=== PATIENT | male | born 1945 | race Asian ===

== ENCOUNTER → 2016-11-02 | Outpatient (CLI) | payer MEDICARE, OTHER | LOC: OD 15:32 | PROVIDERS: ATTEND Physician Assistant | DX: R10.32 Left lower quadrant pain (principal) | CPT/HCPCS: 74000 ==

== ENCOUNTER → 2016-12-07 | Outpatient (CLI) | payer MEDICARE, OTHER | LOC: OD 15:10 | PROVIDERS: ATTEND Physician Assistant | DX: M25.551 Pain in right hip (principal) ==

== ENCOUNTER → 2016-12-21 | Outpatient (CLI) | payer MEDICARE, OTHER ==
[2016-12-21 15:09] LABS: APPEARANCE,URINE CLEAR; BILIRUBIN,URINE NEGATIVE (NEGATIVE); GLUCOSE, URINE NEGATIVE (NEGATIVE); KETONES,URINE NEGATIVE (NEGATIVE); LEUKOCYTE ESTERASE,URINE NEGATIVE (NEGATIVE); NITRITE,URINE NEGATIVE (NEGATIVE); PROTEIN,URINE NEGATIVE (NEGATIVE); URINE SPECIFIC GRAVITY 1.008; UROBILINOGEN,URINE NEGATIVE mg/dL (<2.0)
[2016-12-21 15:27] LABS: HEMATOCRIT 42.1 % (37.9-51.0); HEMOGLOBIN 14.2 g/dL (13.5-17.0); HGB HCT DIFFERENCE 0.5; MEAN CORPUSCULAR HEMOGLOBIN 29.2 pg (27.0-33.4); MEAN CORPUSCULAR HGB CONC 33.8 g/dL (32.0-36.0); MEAN CORPUSCULAR VOLUME 86 fl (80-97); RED BLOOD COUNT 4.88 10^6/uL (4.35-5.55); WHITE BLOOD COUNT 5.1 10^3/uL (4.0-10.5)
[2016-12-21 15:44] LABS: ANION GAP 12 (5-19); BLOOD UREA NITROGEN 20 mg/dL (7-20); CALCIUM 9.4 mg/dL (8.4-10.2); CARBON DIOXIDE 27 mmol/L (22-30); CHLORIDE 103 mmol/L (98-107); CREATININE RESULT 1.11 mg/dL (0.52-1.25); GLUCOSE 88 mg/dL (75-110); POTASSIUM 4.2 mmol/L (3.6-5.0); SODIUM 141.7 mmol/L (137-145)
== END ==
LOC: OD 14:10
PROVIDERS: ATTEND Internal Medicine Nephrology
DX: I12.9 Hypertensive chronic kidney disease with stage 1 through stage 4 chronic kidney disease, or unspecified chronic kidney disease (principal); N18.2 Chronic kidney disease, stage 2 (mild); R80.9 Proteinuria, unspecified
CPT/HCPCS: 36415; 80048; 81001; 82570; 84156; 85027

== ENCOUNTER → 2016-12-26 | Outpatient (CLI) | payer MEDICARE, OTHER | LOC: OD 15:57 | PROVIDERS: ATTEND Family Medicine | DX: M51.37 Other intervertebral disc degeneration, lumbosacral region (principal); M25.561 Pain in right knee | CPT/HCPCS: 72110 ==

== ENCOUNTER → 2017-03-09 | Outpatient (CLI) | payer MEDICARE, OTHER ==
--- NOTE | 2017-03-09 11:45 | RADIOLOGY REPORT (SQ) ---
EXAM DESCRIPTION: U/S RETROPERITON (RENAL/AORTA) COMPLETED DATE/TIME: 03/09/2017 9:41 am REASON FOR STUDY: COMPLEX CYST, RENAL N28.1 CYST OF KIDNEY, ACQUIRED COMPARISON: CT abdomen pelvis 09/05/2016 TECHNIQUE: Dynamic and static grayscale images acquired of the kidneys and bladder and recorded on P ACS. Additional selected color Doppler and spectral images recorded. LIMITATIONS: None. FINDINGS: RIGHT KIDNEY: Right kidney is 11.1 cm in size. There is mild diffuse cortical thinning an d increased echogenicity from medical renal disease. No hydronephrosis or calculi. In the right mid-pole kidney, a 2.5 x 2 cm cyst is present, and a 1.8 x 16 cm cyst is present. LEFT KIDNEY: Left kidney is 11.3 cm in size. There is mild diffuse cortical thinning and increased echogenicity from medical renal disease. No hydronephrosis or stones. Stable 4 cm cyst in the left mid to upper pole kidney. Stable 3.5 cm, 2.2 cm, 2.1 cm and 1.7 cm lowe r pole cortical cysts. Tiny calcifications identified by CT 09/05/2016 in the 4 cm cyst left mid gladis e kidney and lower pole renal cyst are not apparent by ultrasound BLADDER: No masses. Bilateral ureteral jets are present. OTHER FINDINGS: No other significant finding. IMPRESSION: Stable right and left renal cortical cysts compared to CT 09/05/2016. TECHNICAL DOCUMENTATION: JOB ID: [id number] [employer]- All Rights Reserved
== END ==
LOC: RAD 08:37
PROVIDERS: ATTEND Urology
DX: N28.1 Cyst of kidney, acquired (principal)
CPT/HCPCS: 76770

== ENCOUNTER → 2017-07-12 | Outpatient (CLI) | payer MEDICARE, OTHER ==
[2017-07-12 16:32] LABS: HEMATOCRIT 42.7 % (37.9-51.0); HEMOGLOBIN 14.8 g/dL (13.5-17.0); HGB HCT DIFFERENCE 1.7; MEAN CORPUSCULAR HEMOGLOBIN 30.3 pg (27.0-33.4); MEAN CORPUSCULAR HGB CONC 34.6 g/dL (32.0-36.0); MEAN CORPUSCULAR VOLUME 88 fl (80-97); RED BLOOD COUNT 4.86 10^6/uL (4.35-5.55); RED CELL DISTRIBUTION WIDTH 12.8 % (11.5-14.0); WHITE BLOOD COUNT 5.6 10^3/uL (4.0-10.5)
[2017-07-12 16:36] LABS: APPEARANCE,URINE SLIGHTLY-CLOUDY; BILIRUBIN,URINE NEGATIVE (NEGATIVE); GLUCOSE, URINE NEGATIVE (NEGATIVE); KETONES,URINE NEGATIVE (NEGATIVE); LEUKOCYTE ESTERASE,URINE NEGATIVE (NEGATIVE); NITRITE,URINE NEGATIVE (NEGATIVE); PROTEIN,URINE NEGATIVE (NEGATIVE); URINE SPECIFIC GRAVITY 1.023; UROBILINOGEN,URINE NEGATIVE mg/dL (<2.0)
[2017-07-12 16:56] LABS: ANION GAP 13 (5-19); BLOOD UREA NITROGEN 29 mg/dL (7-20); CALCIUM 9.3 mg/dL (8.4-10.2); CARBON DIOXIDE 25 mmol/L (22-30); CHLORIDE 101 mmol/L (98-107); GLUCOSE 104 mg/dL (75-110); POTASSIUM 4.4 mmol/L (3.6-5.0); SODIUM 139.3 mmol/L (137-145)
== END ==
LOC: OD 14:59
PROVIDERS: ATTEND Internal Medicine Nephrology
DX: I12.9 Hypertensive chronic kidney disease with stage 1 through stage 4 chronic kidney disease, or unspecified chronic kidney disease (principal); N18.2 Chronic kidney disease, stage 2 (mild); R80.9 Proteinuria, unspecified
CPT/HCPCS: 36415; 80048; 81001; 85027

== ENCOUNTER → 2017-07-27 | Outpatient (CLI) | payer MEDICARE, OTHER ==
[2017-07-27 14:17] LABS: HEMATOCRIT 41.9 % (37.9-51.0); HEMOGLOBIN 14.4 g/dL (13.5-17.0); HGB HCT DIFFERENCE 1.3; MEAN CORPUSCULAR HEMOGLOBIN 30.3 pg (27.0-33.4); MEAN CORPUSCULAR HGB CONC 34.4 g/dL (32.0-36.0); MEAN CORPUSCULAR VOLUME 88 fl (80-97); RED BLOOD COUNT 4.75 10^6/uL (4.35-5.55); RED CELL DISTRIBUTION WIDTH 12.4 % (11.5-14.0); WHITE BLOOD COUNT 4.8 10^3/uL (4.0-10.5)
[2017-07-27 14:33] LABS: BLOOD UREA NITROGEN 26 mg/dL (7-20); CALCIUM 9.5 mg/dL (8.4-10.2); CARBON DIOXIDE 29 mmol/L (22-30); GLUCOSE 95 mg/dL (75-110); SODIUM 140.9 mmol/L (137-145)
[2017-07-27 14:38] LABS: ANION GAP 12 (5-19); CHLORIDE 100 mmol/L (98-107)
== END ==
LOC: OD 13:35
PROVIDERS: ATTEND Internal Medicine Nephrology
DX: N18.2 Chronic kidney disease, stage 2 (mild) (principal); R50.9 Fever, unspecified; I10 Essential (primary) hypertension
CPT/HCPCS: 36415; 80048; 85027

== ENCOUNTER → 2017-09-24 | Outpatient (CLI) | payer MEDICARE, OTHER ==
[2017-09-24 15:48] LABS: HEMATOCRIT 44.5 % (37.9-51.0); HGB HCT DIFFERENCE 0.5; MEAN CORPUSCULAR HGB CONC 33.7 g/dL (32.0-36.0); MEAN CORPUSCULAR VOLUME 89 fl (80-97); RED CELL DISTRIBUTION WIDTH 13.1 % (11.5-14.0); WHITE BLOOD COUNT 5.9 10^3/uL (4.0-10.5)
[2017-09-24 15:58] LABS: APPEARANCE,URINE CLEAR; BILIRUBIN,URINE NEGATIVE (NEGATIVE); GLUCOSE, URINE NEGATIVE (NEGATIVE); KETONES,URINE NEGATIVE (NEGATIVE); LEUKOCYTE ESTERASE,URINE NEGATIVE (NEGATIVE); NITRITE,URINE NEGATIVE (NEGATIVE); PROTEIN,URINE NEGATIVE (NEGATIVE); URINE SPECIFIC GRAVITY 1.008; UROBILINOGEN,URINE NEGATIVE mg/dL (<2.0)
[2017-09-25 14:44] LABS: ANION GAP 11 (5-19); BLOOD UREA NITROGEN 29 mg/dL (7-20); CALCIUM 9.4 mg/dL (8.4-10.2); CARBON DIOXIDE 27 mmol/L (22-30); CHLORIDE 101 mmol/L (98-107); CREATININE RESULT 1.24 mg/dL (0.52-1.25); GLUCOSE 98 mg/dL (75-110); POTASSIUM 4.2 mmol/L (3.6-5.0)
== END ==
LOC: OD 15:00
PROVIDERS: ATTEND Internal Medicine Nephrology
DX: N18.3 Chronic kidney disease, stage 3 (moderate) (principal); I12.9 Hypertensive chronic kidney disease with stage 1 through stage 4 chronic kidney disease, or unspecified chronic kidney disease
CPT/HCPCS: 36415; 80048; 81001; 85027

== ENCOUNTER 2018-03-29 10:14 | Emergency (ER) | payer MEDICARE, OTHER ==
--- NOTE | 2018-03-29 11:25 | ER Document Report ---
ED Respiratory Problem - General Chief Complaint: Shortness Of Breath Stated Complaint: DIFFICULTY BREATHING Time Seen by Provider: 03/29/18 11:19 Mode of Arrival: Ambulatory Information source: Patient TRAVEL OUTSIDE OF THE [place] IN LAST 30 DAYS: No - HPI Patient complains to provider of: Short of breath, Other - NAUSEA THIS A.M.; FEET COLD @ NIGHT x 3 WEEKS Onset: Yesterday - LAST PM Duration: Better Quality of pain: No pain Severity: Mild Context: Hx COPD. denies: Malignancy, Recent cardiac event, Recent immobilization, Recent surgery Short of Breath: Mild Cough: Nonproductive Sputum amount: None Associated symptoms: Other - NAUSEA THIS A.M. WHILE @ UROLOGY OFFICE; NO EMESIS Similar symptoms previously: Yes Recently seen / treated by doctor: Yes - UROLOGIST, THIS A.M. - Related Data Allergies/Adverse Reactions: No Known Allergies Allergy (Verified 03/29/18 10:15) Past Medical History - General Information source: Patient - Social History Smoking Status: Former Smoker Cigarette use (# per day): No Chew tobacco use (# tins/day): No Frequency of alcohol use: None Drug Abuse: None Lives with: Family Family History: Reviewed & Not Pertinent - Past Medical History Cardiac Medical History: Reports: Hx Coronary Artery Disease, Hx Hypercholesterolemia, Hx Hypertension Denies: Hx Heart Attack Pulmonary Medical History: Reports: Hx Bronchitis - HX OF, Hx Pneumonia - HX OF Denies: Hx Asthma, Hx COPD Neurological Medical History: Denies: Hx Cerebrovascular Accident, Hx Seizures Endocrine Medical History: Reports: None. Denies: Hx Diabetes Mellitus Type 1, Hx Diabetes Mellitus Type 2 Renal/ Medical History: Reports: Hx Renal Insufficiency GI Medical History: Reports: None Musculoskeltal Medical History: Reports Hx Arthritis - HANDS, KNEES Psychiatric Medical History: Reports: None Past Surgical History: Reports: Hx Orthopedic Surgery - R shoulder, Hx Tonsillectomy - Immunizations Hx Diphtheria, Pertussis, Tetanus Vaccination: Yes Review of Systems - Review of Systems Constitutional: No symptoms reported EENT: No symptoms reported Cardiovascular: See HPI Respiratory: See HPI Gastrointestinal: See HPI Genitourinary: No symptoms reported Musculoskeletal: No symptoms reported Skin: No symptoms reported Neurological/Psychological: No symptoms reported Physical Exam - Vital signs Vitals: Temp Pulse Resp BP Pulse Ox 98.2 F 86 18 133/75 H 95 03/29/18 10:20 03/29/18 10:20 03/29/18 10:20 03/29/18 10:20 03/29/18 10:20 Interpretation: Normal. No: Tachycardic, Hypoxic, Tachypneic, Febrile - General General appearance: Appears well, Alert In distress: None - HEENT Head: Normocephalic Eyes: Normal Conjunctiva: Normal Ears: Normal Nasal: Normal Mouth/Lips: Normal Mucous membranes: Normal - Respiratory Respiratory status: No respiratory distress Breath sounds: Normal - Cardiovascular Rhythm: Regular Heart sounds: Normal auscultation Murmur: No - Abdominal Inspection: Normal Distension: No distension - Extremities General upper extremity: Normal inspection General lower extremity: Normal inspection, Other - NORMAL DP PULSES BILAT.. No : Tender, Edema - Neurological Neuro grossly intact: Yes Cognition: Normal Orientation: AAOx4 - Psychological Associated symptoms: Normal affect, Normal mood - Skin Skin Temperature: Warm Skin Moisture: Dry Skin Color: Normal Skin Turgor: Elastic Course - Re-evaluation Re-evalutation: 03/29/18 15:07 Reevaluation: Patient has no complaints at present, says he has been asymptomatic during his entire stay in the emergency department. Results of workup discussed with patient. Suggested he follow up routinely with his primary care. Also, consider referral to neurology for symptoms in his lower extremities. - Vital Signs Vital signs: Temp Pulse Resp BP Pulse Ox 98.2 F 86 23 H 126/79 H 95 03/29/18 10:20 03/29/18 10:20 03/29/18 11:08 03/29/18 14:00 03/29/18 14:00 - Laboratory Result Diagrams: 03/29/18 11:17 03/29/18 11:25 Laboratory results interpreted by me: 03/29/18 11:25 BUN 28 H Creatinine 1.43 H Est GFR ( Amer) 59 L Est GFR (Non-Af Amer) 49 L Direct Bilirubin 0.5 H - EKG Interpretation by Ct EKG shows normal: Sinus rhythm. abnormal: QRS Complexes - SMALL INF. Q WAVES [place]/QRS: RBBB - OLD When compared to previous EKG there are: No significant change Discharge - Discharge Clinical Impression: Paresthesia of bilateral legs COPD (chronic obstructive pulmonary disease) Qualifiers: COPD type: unspecified COPD Qualified Code(s): J44.9 - Chronic obstructive pulmonary disease, unspecified Dyspnea Qualifiers: Dyspnea type: unspecified Qualified Code(s): R06.00 - Dyspnea, unspecified Condition: Stable Disposition: HOME, SELF-CARE Instructions: Chronic Obstructive Lung Disease ([facility]), Numbness or Paresthesia ( [facility]) Additional Instructions: CONTINUE YOUR USUAL MEDS. FOLLOW UP WITH DR. BATRES, YOU MAY NEED REFERRAL TO NEUROLOGY FOR YOU LEG SYMPTOMS. RETURN TO E.R. IF PROBLEMS. Referrals: Nelson DENNEY MD [ACTIVE STAFF] - Follow up as needed JUANITA BATRES DO [Primary Care Provider] - Follow up as needed
[2018-03-29 11:51] LABS: ABSOLUTE EOSINOPHILS # (AUTO) 0.3 10^3/uL (0.0-0.6); ABSOLUTE LYMPHOCYTES (AUTO) 0.9 10^3/uL (0.5-4.7); ABSOLUTE MONOCYTES (AUTO) 0.6 10^3/uL (0.1-1.4); ABSOLUTE NEUT (AUTO) 4.6 10^3/uL (1.7-8.2); BASOPHILS % (AUTO) 0.3 % (0-2); EOSINOPHILS % (AUTO) 4.3 % (0-6); HEMATOCRIT 42.2 % (37.9-51.0); HEMOGLOBIN 14.3 g/dL (13.5-17.0); LYMPHOCYTES % (AUTO) 13.6 % (13-45); MEAN CORPUSCULAR HEMOGLOBIN 30.3 pg (27.0-33.4); MEAN CORPUSCULAR HGB CONC 33.9 g/dL (32.0-36.0); MEAN CORPUSCULAR VOLUME 89 fl (80-97); MONOCYTES % (AUTO) 9.7 % (3-13); PLATELET COUNT 174 10^3/uL (150-450); RED BLOOD COUNT 4.71 10^6/uL (4.35-5.55); SEGMENTED NEUTROPHILS % (AUTO) 72.1 % (42-78); TOTAL CELLS COUNTED % (AUTO) 100 %; WHITE BLOOD COUNT 6.4 10^3/uL (4.0-10.5)
--- NOTE | 2018-03-29 11:56 | RADIOLOGY REPORT (SQ) ---
EXAM DESCRIPTION: CHEST 2 VIEWS COMPLETED DATE/TIME: 03/29/2018 11:34 am REASON FOR STUDY: DYSPNEA, COPD COMPARISON: 09/07/2016. EXAM PARAMETERS: NUMBER OF VIEWS: two views TECHNIQUE: Digital Frontal and Lateral radiographic views of the chest acquired. RADIATION DOSE: NA LIMITATIONS: none FINDINGS: LUNGS AND PLEURA: Chronic elevation of the right hemidiaphragm with atelectasis in the rig ht lung base. Left lung clear. No pleural effusion. No pneumothorax. MEDIASTINUM AND HILAR STRUCTURES: No masses or contour abnormalities. HEART AND VASCULAR STRUCTURES: Heart normal size. No evidence for failure. BONES: No acute findings. HARDWARE: None in the chest. OTHER: No other significant finding. IMPRESSION: CHRONIC ELEVATION OF THE RIGHT HEMIDIAPHRAGM WITH ATELECTASIS IN THE RIGHT LUNG BASE. N O OTHER SIGNIFICANT FINDINGS. TECHNICAL DOCUMENTATION: JOB ID: [id number] [employer]- All Rights Reserved Reading location - IP/workstation name: [email or web address]
[2018-03-29 12:03] LABS: ALANINE AMINOTRANSFERASE 37 U/L (21-72); ALBUMIN 4.3 g/dL (3.5-5.0); ALKALINE PHOSPHATASE 81 U/L (38-126); ANION GAP 12 (5-19); ASPARTATE AMINO TRANSFERASE 31 U/L (17-59); BILIRUBIN,DIRECT 0.5 mg/dL (0.0-0.4); BILIRUBIN,TOTAL 0.8 mg/dL (0.2-1.3); BLOOD UREA NITROGEN 28 mg/dL (7-20); CALCIUM 9.8 mg/dL (8.4-10.2); CARBON DIOXIDE 27 mmol/L (22-30); CHLORIDE 104 mmol/L (98-107); CREATINE KINASE 72 U/L (55-170); GLUCOSE 102 mg/dL (75-110); LIPASE 111.4 U/L (23-300); POTASSIUM 4.7 mmol/L (3.6-5.0); SODIUM 143.2 mmol/L (137-145); TOTAL PROTEIN 7.2 g/dL (6.3-8.2)
[2018-03-29 12:15] LABS: CREATINE KINASE MB 1.08 ng/mL (<4.55); TROPONIN I < 0.012 ng/mL
--- NOTE | 2018-03-29 13:52 | EKG REPORT ---
SEVERITY:- ABNORMAL ECG - SINUS RHYTHM RIGHT BUNDLE BRANCH BLOCK PROBABLE INFERIOR INFARCT, AGE INDETERMINATE : Confirmed by: Carlitos Brown MD 29-Mar-2018 13:51:47
[2018-03-29 15:24] VITALS: BP 122/86
== END 2018-03-29 15:32 | disposition home or self-care (01) ==
LOC: ER 10:14
DX: J44.9 Chronic obstructive pulmonary disease, unspecified (principal); R06.00 Dyspnea, unspecified; R20.0 Anesthesia of skin; R11.0 Nausea; Z87.891 Personal history of nicotine dependence; I25.10 Atherosclerotic heart disease of native coronary artery without angina pectoris; I10 Essential (primary) hypertension
CPT/HCPCS: 36415; 71046; 80053; 82550; 82553; 83690; 83880; 84484; 85025; 93005; 93010; 99285

== ENCOUNTER → 2018-04-22 | Outpatient (CLI) | payer MEDICARE, OTHER ==
[2018-04-22 15:33] LABS: APPEARANCE,URINE CLEAR; BILIRUBIN,URINE NEGATIVE (NEGATIVE); COLOR,URINE STRAW; GLUCOSE, URINE NEGATIVE (NEGATIVE); KETONES,URINE NEGATIVE (NEGATIVE); LEUKOCYTE ESTERASE,URINE NEGATIVE (NEGATIVE); NITRITE,URINE NEGATIVE (NEGATIVE); PROTEIN,URINE NEGATIVE (NEGATIVE); URINE SPECIFIC GRAVITY 1.006; UROBILINOGEN,URINE NEGATIVE mg/dL (<2.0)
[2018-04-22 15:40] LABS: HEMATOCRIT 41.6 % (37.9-51.0); HEMOGLOBIN 14.2 g/dL (13.5-17.0); MEAN CORPUSCULAR HEMOGLOBIN 30.6 pg (27.0-33.4); MEAN CORPUSCULAR HGB CONC 34.2 g/dL (32.0-36.0); MEAN CORPUSCULAR VOLUME 90 fl (80-97); PLATELET COUNT 174 10^3/uL (150-450); RED BLOOD COUNT 4.65 10^6/uL (4.35-5.55); RED CELL DISTRIBUTION WIDTH 12.3 % (11.5-14.0); WHITE BLOOD COUNT 5.2 10^3/uL (4.0-10.5)
[2018-04-22 15:56] LABS: ANION GAP 15 (5-19); BLOOD UREA NITROGEN 22 mg/dL (7-20); CALCIUM 9.2 mg/dL (8.4-10.2); CARBON DIOXIDE 25 mmol/L (22-30); CHLORIDE 103 mmol/L (98-107); GLUCOSE 96 mg/dL (75-110); POTASSIUM 4.2 mmol/L (3.6-5.0); SODIUM 142.7 mmol/L (137-145)
== END ==
LOC: OD 14:26
PROVIDERS: ATTEND Internal Medicine Nephrology
DX: I12.9 Hypertensive chronic kidney disease with stage 1 through stage 4 chronic kidney disease, or unspecified chronic kidney disease (principal); N18.2 Chronic kidney disease, stage 2 (mild); R80.9 Proteinuria, unspecified
CPT/HCPCS: 36415; 80048; 81001; 83735; 85027

== ENCOUNTER → 2018-06-10 | Outpatient (CLI) | payer MEDICARE, OTHER ==
--- NOTE | 2018-06-10 15:31 | RADIOLOGY REPORT (SQ) ---
EXAM DESCRIPTION: SHOULDER RIGHT 2 OR MORE VIEWS COMPLETED DATE/TIME: 06/10/2018 3:13 pm REASON FOR STUDY: PAIN IN RIGHT SHOULDER M25.511 PAIN IN RIGHT SHOULDER COMPARISON: None. NUMBER OF VIEWS: Three views. TECHNIQUE: Internal rotation, external rotation, and Y view images acquired of the right shoulder. LIMITATIONS: None. FINDINGS: MINERALIZATION: Normal. BONES: No acute fracture or dislocation. No worrisome bone lesions. JOINTS: No dislocation. VISUALIZED LUNGS AND RIBS: No pneumothorax. No rib fracture. SOFT TISSUES: No radiopaque foreign body. OTHER: No other significant finding. IMPRESSION: NEGATIVE STUDY OF THE RIGHT SHOULDER. NO RADIOGRAPHIC EVIDENCE OF ACUTE INJURY. TECHNICAL DOCUMENTATION: JOB ID: [id number] [employer]- All Rights Reserved Reading location - IP/workstation name: [email or web address]
== END ==
LOC: OD 14:52
PROVIDERS: ATTEND Family Medicine
DX: M25.511 Pain in right shoulder (principal)

== ENCOUNTER → 2018-09-11 | Outpatient (CLI) | payer MEDICARE, OTHER ==
--- NOTE | 2018-09-11 11:45 | RADIOLOGY REPORT (SQ) ---
EXAM DESCRIPTION: FOOT RIGHT COMPLETE COMPLETED DATE/TIME: 09/11/2018 11:33 am REASON FOR STUDY: RT FOOT PAIN M79.671 PAIN IN RIGHT FOOT crush injury to the toes 1-1/2 weeks ago with continued pain COMPARISON: None. NUMBER OF VIEWS: Three views. TECHNIQUE: AP, lateral and oblique radiographic images acquired of the right foot. LIMITATIONS: None. FINDINGS: MINERALIZATION: Normal. BONES: Nondisplaced acute transverse fractures along the distal michaelle of the 3rd and 5th phalanges. Remainder of the bones of the right foot are otherwise unremarkable aside from a small plantar calcan eal spur. JOINTS: No effusions. SOFT TISSUES: No soft tissue swelling. No foreign body. OTHER: No other significant finding. IMPRESSION: Nondisplaced acute transverse fractures along the distal michaelle of the 3rd and 5th distal phalanges, right toes TECHNICAL DOCUMENTATION: JOB ID: [id number] [employer]- All Rights Reserved Reading location - IP/workstation name: [email or web address]
== END ==
LOC: OD 11:14
PROVIDERS: ATTEND Nurse Practitioner Family
DX: M79.671 Pain in right foot (principal)

== ENCOUNTER → 2018-10-21 | Outpatient (CLI) | payer MEDICARE, OTHER ==
[2018-10-21 16:02] LABS: HEMATOCRIT 43.7 % (37.9-51.0); MEAN CORPUSCULAR HGB CONC 34.3 g/dL (32.0-36.0); MEAN CORPUSCULAR VOLUME 87 fl (80-97); PLATELET COUNT 168 10^3/uL (150-450); RED BLOOD COUNT 5.01 10^6/uL (4.35-5.55); RED CELL DISTRIBUTION WIDTH 12.3 % (11.5-14.0); WHITE BLOOD COUNT 4.9 10^3/uL (4.0-10.5)
[2018-10-21 16:09] LABS: APPEARANCE,URINE CLEAR; BILIRUBIN,URINE NEGATIVE (NEGATIVE); COLOR,URINE YELLOW; GLUCOSE, URINE NEGATIVE (NEGATIVE); KETONES,URINE NEGATIVE (NEGATIVE); LEUKOCYTE ESTERASE,URINE NEGATIVE (NEGATIVE); NITRITE,URINE NEGATIVE (NEGATIVE); PROTEIN,URINE NEGATIVE (NEGATIVE); URINE SPECIFIC GRAVITY 1.011; UROBILINOGEN,URINE NEGATIVE mg/dL (<2.0)
[2018-10-21 16:24] LABS: ANION GAP 9 (5-19); BLOOD UREA NITROGEN 22 mg/dL (7-20); CALCIUM 9.6 mg/dL (8.4-10.2); CARBON DIOXIDE 27 mmol/L (22-30); CHLORIDE 103 mmol/L (98-107); GLUCOSE 106 mg/dL (75-110); SODIUM 138.7 mmol/L (137-145)
== END ==
LOC: OD 15:13
PROVIDERS: ATTEND Internal Medicine Nephrology
DX: I12.9 Hypertensive chronic kidney disease with stage 1 through stage 4 chronic kidney disease, or unspecified chronic kidney disease (principal); N18.2 Chronic kidney disease, stage 2 (mild); R80.9 Proteinuria, unspecified
CPT/HCPCS: 36415; 80048; 81001; 83735; 85027

== ENCOUNTER 2018-11-07 11:35 | Observation (INO) | payer MEDICARE ==
[2018-11-07] MEDS ORDERED: ASPIRIN 81 MG TABLET, CHEWABLE PO ONE (12:07)
[2018-11-07] MEDS ORDERED: LIDOCAINE 2% VISCOUS SOLN 20 ML UDCUP PO ONE (12:46)
[2018-11-07] MEDS ORDERED: METOCLOPRAMIDE HCL ORAL SOLN 10 MG/10 ML UDCUP PO ONE (12:46)
[2018-11-07] MEDS ORDERED: MAG HYDROX/AL HYDROX/SIMETH SUSP 30 ML UDCUP PO ONE (12:46)
--- NOTE | 2018-11-07 12:49 | ER Document Report ---
ED Cardiac - General Chief Complaint: Chest Pain Stated Complaint: CHEST PAIN Time Seen by Provider: 11/07/18 12:42 Primary Care Provider: JUANITA BATRES DO [Primary Care Provider] - Follow up as needed TRAVEL OUTSIDE OF THE [place] IN LAST 30 DAYS: No - HPI Notes: Patient is a 73-year-old male that presents to the emergency department for chief complaint of chest pain. Patient reports intermittent substernal chest pain for the last few weeks. He saw Dr. Brown for the symptoms about a week and a half ago. He states he is scheduled for a stress test on 06/22/19. He does report a history of NM in the past. He describes his pain as a burning sensation. It occurs at rest and with exertion. He denies aggravating or relieving factors. He denies radiation of his pain. He denies associated nausea, vomiting, but does endorse some mild shortness of breath when the pain is occurring. Past Medical History: Hypertension, hyperlipidemia, NM Past Surgical History: Left shoulder surgery, left inguinal tumor resection Social History: Denies alcohol and drug use. Quit smoking in 1976 Family History: Reviewed and noncontributory for presenting illness Allergies: Reviewed, see documented allergy list. REVIEW OF SYSTEMS: CONSTITUTIONAL : No fever No chills No diaphoresis No recent illness EENT: No vision changes No congestion No sore throat CARDIOVASCULAR: chest pain No palpitations RESPIRATORY: shortness of breath No cough No difficulty breathing GASTROINTESTINAL: No abdominal pain No nausea No vomiting No diarrhea GENITOURINARY: No dysuria No hematuria No difficulty urinating MUSCULOSKELETAL: No back pain No leg pain No arm pain SKIN: No rashes No lesions LYMPHATIC: No swollen, enlarged glands. NEUROLOGICAL: No lightheadedness No headache No weakness No paresthesias PSYCHIATRIC: No anxiety No depression PHYSICAL EXAMINATION: Vital signs reviewed, nursing noted reviewed. GENERAL: Well-appearing, well-nourished and in no acute distress. HEAD: Atraumatic, normocephalic. EYES: Eyes appear normal, extraocular movements intact, sclera anicteric, conjunctiva are normal. ENT: nares patent, oropharynx clear without exudates. Moist mucous membranes. NECK: Normal range of motion, supple without lymphadenopathy LUNGS: Breath sounds clear to auscultation bilaterally and equal. No wheezes rales or rhonchi. HEART: Regular rate and rhythm without murmurs, +2/4 bilateral radial pulses ABDOMEN: Soft, nontender, normoactive bowel sounds. No rebound, guarding, or rigidity. No masses appreciated. EXTREMITIES: Nontender, good range of motion, no pitting or edema. NEUROLOGICAL: No focal neurological deficits. Moves all extremities spontaneously Motor and sensory grossly intact on exam. PSYCH: Normal mood, normal affect. SKIN: Warm, Dry, normal turgor, no rashes or lesions noted on exposed skin - Related Data Allergies/Adverse Reactions: No Known Allergies Allergy (Verified 03/29/18 10:15) Past Medical History - Social History Smoking Status: Former Smoker Family History: Reviewed & Not Pertinent Patient has suicidal ideation: No Patient has homicidal ideation: No - Past Medical History Cardiac Medical History: Reports: Hx Coronary Artery Disease, Hx Hyp ercholesterolemia, Hx Hypertension Denies: Hx Heart Attack Pulmonary Medical History: Reports: Hx Bronchitis - HX OF, Hx Pneumonia - HX OF Denies: Hx Asthma, Hx COPD Neurological Medical History: Denies: Hx Cerebrovascular Accident, Hx Seizures Endocrine Medical History: Denies: Hx Diabetes Mellitus Type 1, Hx Diabetes Me llitus Type 2 Renal/ Medical History: Reports: Hx Renal Insufficiency. Denies: Hx Peritoneal Dialysis Musculoskeletal Medical History: Reports Hx Arthritis - HANDS, KNEES Past Surgical History: Reports: Hx Orthopedic Surgery - R shoulder, Hx Tonsillectomy - Immunizations Hx Diphtheria, Pertussis, Tetanus Vaccination: Yes Physical Exam - Vital signs Vitals: Temp Pulse Resp BP Pulse Ox 97.8 F 85 15 125/68 93 11/07/18 11:47 11/07/18 11:47 11/07/18 11:47 11/07/18 11:47 11/07/18 11:47 Course - Re-evaluation Re-evalutation: 11/07/18 13:36 Vitals reviewed. Nursing notes reviewed. Patient's EKG is unchanged from prior. His troponin is negative. The remainder of his workup is unremarkable. Patient does have multiple risk factors for CAD and will be admitted to the hospital for further telemetry monitoring and cardiac evaluation. Case discussed with Dr. Sandee Cummings 11/07/18 11/07/18 11/07/18 12:18 12:18 12:18 WBC 5.8 RBC 5.06 Hgb 15.2 Hct 44.5 MCV 88 MCH 30.1 MCHC 34.2 RDW 12.5 Plt Count 167 Seg Neutrophils % 63.5 Lymphocytes % 16.5 Monocytes % 12.2 Eosinophils % 7.3 H Basophils % 0.5 Absolute Neutrophils 3.7 Absolute Lymphocytes 0.9 Absolute Monocytes 0.7 Absolute Eosinophils 0.4 Absolute Basophils 0.0 Sodium 140.7 Potassium 4.1 Chloride 103 Carbon Dioxide 27 Anion Gap 11 BUN 27 H Creatinine 1.24 Est GFR ( Amer) > 60 Est GFR (Non-Af Amer) 57 L Glucose 99 Calcium 9.7 Total Bilirubin 0.5 Direct Bilirubin 0.3 Neonat Total Bilirubin Not Reportable Neonat Direct Bilirubin Not Reportable Neonat Indirect Bili Not Reportable AST 23 ALT 36 Alkaline Phosphatase 92 Creatine Kinase 49 L CK-MB (CK-2) 0.69 Troponin I < 0.012 Total Protein 6.9 Albumin 4.4 Chest X-Ray 11/07/18 12:07 IMPRESSION: NO ACUTE RADIOGRAPHIC FINDING IN THE CHEST. who accepts admission. - Vital Signs Vital signs: Temp Pulse Resp BP Pulse Ox 97.8 F 85 14 111/81 94 11/07/18 11:47 11/07/18 11:47 11/07/18 13:01 11/07/18 13:01 11/07/18 13:01 - Laboratory Result Diagrams: 11/07/18 12:18 11/07/18 12:18 Laboratory results interpreted by me: 11/07/18 11/07/18 12:18 12:18 Eosinophils % 7.3 H BUN 27 H Est GFR (Non-Af Amer) 57 L Creatine Kinase 49 L - EKG Interpretation by Me Additional EKG results interpreted by me: 11/07/18 12:48 Interpreted by myself 1139: Normal sinus rhythm, rate 76, normal axis, right bundle branch block, no STEMI Discharge - Discharge Clinical Impression: Chest pain Qualifiers: Chest pain type: unspecified Qualified Code(s): R07.9 - Chest pain, unspecified Condition: Stable Disposition: ADMITTED OBSERVATION Admitting Provider: Hospitalist Unit Admitted: Telemetry Referrals: JUANITA BATRES DO [Primary Care Provider] - Follow up as needed
[2018-11-07 12:52] LABS: ABSOLUTE EOSINOPHILS # (AUTO) 0.4 10^3/uL (0.0-0.6); ABSOLUTE LYMPHOCYTES (AUTO) 0.9 10^3/uL (0.5-4.7); ABSOLUTE MONOCYTES (AUTO) 0.7 10^3/uL (0.1-1.4); ABSOLUTE NEUT (AUTO) 3.7 10^3/uL (1.7-8.2); BASOPHILS % (AUTO) 0.5 % (0-2); EOSINOPHILS % (AUTO) 7.3 % (0-6); HEMATOCRIT 44.5 % (37.9-51.0); HEMOGLOBIN 15.2 g/dL (13.5-17.0); LYMPHOCYTES % (AUTO) 16.5 % (13-45); MEAN CORPUSCULAR HEMOGLOBIN 30.1 pg (27.0-33.4); MEAN CORPUSCULAR HGB CONC 34.2 g/dL (32.0-36.0); MEAN CORPUSCULAR VOLUME 88 fl (80-97); MONOCYTES % (AUTO) 12.2 % (3-13); PLATELET COUNT 167 10^3/uL (150-450); RED BLOOD COUNT 5.06 10^6/uL (4.35-5.55); RED CELL DISTRIBUTION WIDTH 12.5 % (11.5-14.0); SEGMENTED NEUTROPHILS % (AUTO) 63.5 % (42-78); TOTAL CELLS COUNTED % (AUTO) 100 %; WHITE BLOOD COUNT 5.8 10^3/uL (4.0-10.5)
--- NOTE | 2018-11-07 12:59 | RADIOLOGY REPORT (SQ) ---
EXAM DESCRIPTION: CHEST SINGLE VIEW COMPLETED DATE/TIME: 11/07/2018 12:45 pm REASON FOR STUDY: cp COMPARISON: 03/29/2018 EXAM PARAMETERS: NUMBER OF VIEWS: One view. TECHNIQUE: Single frontal radiographic view of the chest acquired. RADIATION DOSE: NA LIMITATIONS: None. FINDINGS: LUNGS AND PLEURA: Chronically elevated right hemidiaphragm. No pulmonary infiltrate, effu maxim, or mass. MEDIASTINUM AND HILAR STRUCTURES: No masses. Contour normal. HEART AND VASCULAR STRUCTURES: Heart normal in size. Normal vasculature. BONES: No acute findings. HARDWARE: None in the chest. OTHER: No other significant finding. IMPRESSION: NO ACUTE RADIOGRAPHIC FINDING IN THE CHEST. TECHNICAL DOCUMENTATION: JOB ID: [id number] [employer]- All Rights Reserved Reading location - IP/workstation name: [email or web address]
[2018-11-07 13:03] LABS: ALANINE AMINOTRANSFERASE 36 U/L (21-72); ALBUMIN 4.4 g/dL (3.5-5.0); ALKALINE PHOSPHATASE 92 U/L (38-126); ANION GAP 11 (5-19); ASPARTATE AMINO TRANSFERASE 23 U/L (17-59); BILIRUBIN,DIRECT 0.3 mg/dL (0.0-0.4); BILIRUBIN,TOTAL 0.5 mg/dL (0.2-1.3); BLOOD UREA NITROGEN 27 mg/dL (7-20); CALCIUM 9.7 mg/dL (8.4-10.2); CARBON DIOXIDE 27 mmol/L (22-30); CHLORIDE 103 mmol/L (98-107); CREATINE KINASE 49 U/L (55-170); GLUCOSE 99 mg/dL (75-110); POTASSIUM 4.1 mmol/L (3.6-5.0); SODIUM 140.7 mmol/L (137-145); TOTAL PROTEIN 6.9 g/dL (6.3-8.2)
[2018-11-07 13:15] LABS: CREATINE KINASE MB 0.69 ng/mL (<4.55)
[2018-11-07 13:17] LABS: TROPONIN I < 0.012 ng/mL
[2018-11-07] MEDS ORDERED: ACETAMINOPHEN 325 MG TABLET PO PRN (14:39)
[2018-11-07] MEDS ORDERED: ONDANSETRON HCL INJ/PF 4 MG/2 ML SDV IV PRN (14:39)
[2018-11-07] MEDS ORDERED: ACETAMINOPHEN PO PRN (14:46)
[2018-11-07] MEDS ORDERED: HYDROCODONE PO PRN (14:46)
[2018-11-07] MEDS ORDERED: [UNRECOGNIZED DRUG - OTHER] PO PRN (14:46)
[2018-11-07] MEDS ORDERED: (PENDING PHARMACY ID) (Nitroglycerin [Nitrostat] 0.3 MG) SL PRN (14:46)
--- NOTE | 2018-11-07 15:14 | PDOC H&P ---
History of Present Illness Admission Date/PCP: 11/07/18 14:19 JUANITA BATRES DO Patient complains of: Chest pain ER physician chest pain History of Present Illness: JAE CHONG is a 73 year old male with history of coronary artery disease status post [place] 4 years ago, hypertension, hyperlipidemia, gastroparesis reflux disease came to the emergency room with complaints of on and off discomfort feeling over the chest middle of the chest rather each time lasting for couple of hours. He tried to take nitroglycerin at home did not ease of the pain. Pain is not associated with activity. No associated symptoms like nausea, vomiting, sweating, shortness of breath was reported by the patient. The workup done by the ER physician troponin was negative EKG with no acute changes medical consult was called for admission for possible stress test. Went to talk to the patient in the emergency room is comfortably in the bed alert and awake communicating well oriented. He is chest pain-free now. Patient actually went to see Dr. Brown is staff today with complaints of chest pain he was advised to come to the ER for further evaluation. Patient is also given the history and he was scheduled for outpatient stress test on November [address] Clark's office in the meantime he came to the emergency room with chest pains. Past Medical History Cardiac Medical History: Reports: Coronary Artery Disease, Hyperlipidema, Hyper tension Denies: Myocardial Infarction Pulmonary Medical History: Reports: Bronchitis - HX OF, Pneumonia - HX OF Denies: Asthma, Chronic Obstructive Pulmonary Disease (COPD) Neurological Medical History: Denies: Seizures Endocrine Medical History: Denies: Diabetes Mellitus Type 1, Diabetes Mellitus Type 2 Musculoskeltal Medical History: Reports: Arthritis - HANDS, KNEES Hematology: Denies: Anemia Past Surgical History Past Surgical History: Reports: Orthopedic Surgery - R shoulder, Tonsillectomy Social History Smoking Status: Former Smoker Frequency of Alcohol Use: None Hx Recreational Drug Use: No Hx Prescription Drug Abuse: No - Advance Directive Resuscitation Status: Full Code Family History Family History: Reviewed & Not Pertinent Parental Family History Reviewed: Yes Children Family History Reviewed: Yes Sibling(s) Family History Reviewed.: Yes Medication/Allergy Home Medications: Aspirin [Aspirin 81 mg Chewable Tablet] 81 mg PO DAILY 09/12/13 Esomeprazole Magnesium [Nexium] 20 mg PO QAM 09/12/13 Fluticasone Propionate [Flonase Nasal Slater 50 Mcg/Slater 16 gm] 1 spray NASL Q12 09/12/13 Hydrocodone/Acetaminophen [Hydrocodon-Acetaminoph 7.5-750] 1 each PO HSP PRN 09/12/13 Simvastatin [Zocor 20 mg Tablet] 20 mg PO QHS 09/12/13 Telmisartan/Hydrochlorothiazid [Micardis HCT 40-12.5 mg Tablet] 1 each PO DAILY 09/12/13 Cinnamon Bark [Cinnamon Bark 500 mg Capsule] 500 mg PO DAILY 12/10/13 Multivitamin [Tab-A-Magdaleno] 1 each PO DAILY 12/10/13 Nitroglycerin [Nitrostat] 0.3 mg SL ONCEP PRN #1 tab.subl 01/30/15 Amlodipine Besylate [Norvasc 5 mg Tablet] 5 mg PO DAILY 08/25/15 Diphenhydramine HCl [Benadryl] 50 mg PO Q6 5 Days capsule 08/25/15 Promethazine HCl [Phenergan 25 mg Tablet] 1 - 2 tab PO Q6H PRN #15 tablet 08/25/15 Tamsulosin HCl [Flomax 0.4 mg Cap.sr] 0.4 mg PO DAILY 08/25/15 Allergies/Adverse Reactions: No Known Allergies Allergy (Verified 03/29/18 10:15) Review of Systems Constitutional: ABSENT: fever(s) Eyes: ABSENT: visual disturbances Ears: ABSENT: hearing changes Nose, Mouth, and Throat: ABSENT: sore throat Cardiovascular: PRESENT: chest pain Gastrointestinal: ABSENT: dysphagia, heartburn, nausea, vomiting Neurological: ABSENT: abnormal gait, abnormal speech, confusion, dizziness, focal weakness, syncope Psychiatric: ABSENT: anxiety, depression, homidical ideation, suicidal ideation Physical Exam Vital Signs: Temp Pulse Resp BP Pulse Ox 97.8 F 85 14 111/81 94 11/07/18 11:47 11/07/18 11:47 11/07/18 13:01 11/07/18 13:01 11/07/18 13:01 Intake & Output 11/06/18 11/07/18 11/08/18 06:59 06:59 06:59 Weight 99 kg General appearance: PRESENT: no acute distress Head exam: PRESENT: atraumatic Eye exam: PRESENT: PERRLA Mouth exam: PRESENT: moist Neck exam: ABSENT: carotid bruit, JVD, lymphadenopathy, thyromegaly Respiratory exam: PRESENT: clear to auscultation josé luis. ABSENT: rales, rhonchi, wheezes Cardiovascular exam: PRESENT: RRR. ABSENT: diastolic murmur, rubs, systolic murmur GI/Abdominal exam: PRESENT: normal bowel sounds, soft. ABSENT: distended, guarding, mass, organolmegaly, rebound, tenderness Extremities exam: PRESENT: full ROM. ABSENT: calf tenderness, clubbing, pedal edema Neurological exam: PRESENT: alert, awake, oriented to person, oriented to place, oriented to time, oriented to situation, CN II-XII grossly intact. ABSENT: motor sensory deficit Psychiatric exam: PRESENT: appropriate affect, normal mood. ABSENT: homicidal ideation, suicidal ideation Results Laboratory Results: 11/07/18 12:18 11/07/18 12:18 11/07/18 11/07/18 12:18 12:18 WBC 5.8 RBC 5.06 Hgb 15.2 Hct 44.5 MCV 88 MCH 30.1 MCHC 34.2 RDW 12.5 Plt Count 167 Seg Neutrophils % 63.5 Lymphocytes % 16.5 Monocytes % 12.2 Eosinophils % 7.3 H Basophils % 0.5 Absolute Neutrophils 3.7 Absolute Lymphocytes 0.9 Absolute Monocytes 0.7 Absolute Eosinophils 0.4 Absolute Basophils 0.0 Sodium 140.7 Potassium 4.1 Chloride 103 Carbon Dioxide 27 Anion Gap 11 BUN 27 H Creatinine 1.24 Est GFR ( Amer) > 60 Est GFR (Non-Af Amer) 57 L Glucose 99 Calcium 9.7 Total Bilirubin 0.5 AST 23 ALT 36 Alkaline Phosphatase 92 Total Protein 6.9 Albumin 4.4 11/07/18 11/07/18 12:18 12:18 Creatine Kinase 49 L CK-MB (CK-2) 0.69 Troponin I < 0.012 Impressions: Chest X-Ray 11/07/18 12:07 IMPRESSION: NO ACUTE RADIOGRAPHIC FINDING IN THE CHEST. Assessment & Plan - Diagnosis (1) Chest pain Qualifiers: Chest pain type: unspecified Qualified Code(s): R07.9 - Chest pain, unspecified Plan: 11/07/2018-patient is going to be admitted to telemetry observation. Cardiology consult was requested. Serial cardiac enzymes with troponins and EKGs are requested. Started on aspirin 325 mg p.o. daily, atorvastatin 40 mg p.o. nightly. Lipid panel is requested for tomorrow. Patient was scheduled for the stress test tomorrow. Initial troponin and EKGs are normal. I discussed the case with Dr. Brown who is her supervisor matrix he is going to do the consult today. (2) Coronary artery disease Is this a current diagnosis for this admission?: Yes Plan: 11/07/2018-patient is given the history of heart attack 3 years ago. He denies any stent placements at the time. Never had any bypass surgery was done before. (3) HTN (hypertension) Is this a current diagnosis for this admission?: Yes Plan: 11/07/2018-patient is giving history of hypertension. Blood pressure today is 111/81. stable. Plan to resume his home medications. Patient is on Graham start on/hydrochlorothiazide 40/12.5 mg p.o. daily at home we are going to resume the medication here in the hospital. (4) Obesity (BMI 30-39.9) Plan: 11/07/2018-patient BMI is more than 35 diet exercise weight loss lifestyle modifications are requested. Dietary consult was requested. (5) Hyperlipemia Is this a current diagnosis for this admission?: Yes Plan: 11/07/2018-patient is given the history of high cholesterols. He is not on any cholesterol medication at home. Started on atorvastatin 40 mg p.o. nightly. (6) GERD (gastroesophageal reflux disease) Is this a current diagnosis for this admission?: Yes Plan: 11/07/2018-patient is given the history of heartburn and history of gastric further reflux disease. He is on S omeprazole at home. We are going to put him on famotidine 20 mg p.o. twice a daily while he was in the hospital. - Time Time Spent: 50 to 70 Minutes Medications reviewed and adjusted accordingly: Yes Anticipated discharge: Home
[2018-11-07] MEDS ORDERED: NITROGLYCERIN 0.4 MG/TAB 25 TAB/BOTTLE SL PRN ×2 (15:21→15:52)
[2018-11-07] MEDS ORDERED: HYDROCODONE/ACETAMINOPHEN 5-325 MG TABLET PO PRN (15:25)
[2018-11-07] MEDS: DIPHENHYDRAMINE HCL 50 MG CAPSULE PO SCH (17:54)
[2018-11-07 19:06] LABS: CREATINE KINASE MB 0.68 ng/mL (<4.55)
[2018-11-07 19:11] LABS: TROPONIN I < 0.012 ng/mL
[2018-11-07] MEDS ORDERED: MAG HYDROX/AL HYDROX/SIMETH SUSP 30 ML UDCUP PO PRN (19:24)
[2018-11-07] MEDS ORDERED: METOCLOPRAMIDE HCL ORAL SOLN 10 MG/10 ML UDCUP PO PRN (19:25)
[2018-11-07] MEDS ORDERED: LIDOCAINE 2% VISCOUS SOLN 20 ML UDCUP PO PRN (19:26)
--- NOTE | 2018-11-07 21:09 | EKG REPORT ---
SEVERITY:- ABNORMAL ECG - SINUS RHYTHM RIGHT BUNDLE BRANCH BLOCK : Confirmed by: Gail Wilcox MD 07-Nov-2018 21:08:40
[2018-11-07] MEDS ORDERED: FINASTERIDE 5 MG TABLET PO SCH (22:00)
[2018-11-07] MEDS ORDERED: (PENDING PHARMACY ID) (Terazosin Hcl [Hytrin] 2 MG) PO SCH (22:00)
[2018-11-07] MEDS ORDERED: SIMVASTATIN 10 MG TABLET PO SCH (22:00)
[2018-11-07] MEDS ORDERED: HYDROCODONE/ACETAMINOPHEN 5-325 MG TABLET PO SCH (22:00)
[2018-11-07] MEDS ORDERED: ATORVASTATIN CALCIUM 40 MG TABLET PO SCH (22:00)
[2018-11-07] MEDS ORDERED: FLUTICASONE NASAL SPRAY 50 MCG/SPRY 120 SPRAY/16 GM NASL SCH (22:00)
[2018-11-07] MEDS ORDERED: GABAPENTIN 300 MG CAPSULE PO SCH (22:00)
[2018-11-07] MEDS ORDERED: DOXAZOSIN MESYLATE 2 MG TABLET PO SCH (22:00)
[2018-11-07] MEDS: FAMOTIDINE 20 MG TABLET PO SCH (22:19)
[2018-11-07] MEDS: FLUTICASONE NASAL SPRAY 50 MCG/SPRY 120 SPRAY/16 GM NASL SCH (22:19)
[2018-11-08] MEDS: DIPHENHYDRAMINE HCL 50 MG CAPSULE PO SCH ×3 (00:51→11:08)
[2018-11-08 01:01] LABS: CREATINE KINASE MB 0.75 ng/mL (<4.55)
[2018-11-08 01:06] LABS: TROPONIN I < 0.012 ng/mL
[2018-11-08 07:10] LABS: ABSOLUTE EOSINOPHILS # (AUTO) 0.4 10^3/uL (0.0-0.6); ABSOLUTE LYMPHOCYTES (AUTO) 1.2 10^3/uL (0.5-4.7); ABSOLUTE MONOCYTES (AUTO) 0.7 10^3/uL (0.1-1.4); ABSOLUTE NEUT (AUTO) 3.3 10^3/uL (1.7-8.2); BASOPHILS % (AUTO) 0.4 % (0-2); EOSINOPHILS % (AUTO) 7.9 % (0-6); HEMATOCRIT 42.8 % (37.9-51.0); HEMOGLOBIN 14.3 g/dL (13.5-17.0); MEAN CORPUSCULAR HEMOGLOBIN 29.4 pg (27.0-33.4); MEAN CORPUSCULAR HGB CONC 33.5 g/dL (32.0-36.0); MEAN CORPUSCULAR VOLUME 88 fl (80-97); MONOCYTES % (AUTO) 11.9 % (3-13); PLATELET COUNT 146 10^3/uL (150-450); RED BLOOD COUNT 4.88 10^6/uL (4.35-5.55); RED CELL DISTRIBUTION WIDTH 12.4 % (11.5-14.0); SEGMENTED NEUTROPHILS % (AUTO) 58.8 % (42-78); TOTAL CELLS COUNTED % (AUTO) 100 %; WHITE BLOOD COUNT 5.5 10^3/uL (4.0-10.5)
[2018-11-08 07:30] LABS: ALANINE AMINOTRANSFERASE 44 U/L (21-72); ALBUMIN 3.7 g/dL (3.5-5.0); ALKALINE PHOSPHATASE 70 U/L (38-126); ASPARTATE AMINO TRANSFERASE 22 U/L (17-59); BILIRUBIN,DIRECT 0.1 mg/dL (0.0-0.4); BILIRUBIN,TOTAL 0.6 mg/dL (0.2-1.3); BLOOD UREA NITROGEN 25 mg/dL (7-20); CALCIUM 9.1 mg/dL (8.4-10.2); CHOLESTEROL 152.25 mg/dL (0-200); GLUCOSE 92 mg/dL (75-110); TRIGLYCERIDES 225 mg/dL (<150)
[2018-11-08 07:41] LABS: CREATINE KINASE MB 0.73 ng/mL (<4.55); DIRECT LDL 64 mg/dL (<100)
[2018-11-08 07:53] LABS: TROPONIN I < 0.012 ng/mL
[2018-11-08] MEDS ORDERED: (PENDING PHARMACY ID) (Cetirizine Hcl [Zyrtec] 10 MG) PO SCH (08:00)
[2018-11-08] MEDS ORDERED: CHLORTHALIDONE 25 MG TABLET PO SCH (08:00)
[2018-11-08] MEDS ORDERED: CETIRIZINE 10 MG TABLET PO SCH (08:00)
[2018-11-08 08:04] LABS: ANION GAP 5 (5-19); CARBON DIOXIDE 31 mmol/L (22-30); CHLORIDE 102 mmol/L (98-107); POTASSIUM 3.8 mmol/L (3.6-5.0)
[2018-11-08] MEDS ORDERED: ASPIRIN 81 MG TABLET, CHEWABLE PO SCH (10:00)
[2018-11-08] MEDS ORDERED: (PENDING PHARMACY ID) (Telmisartan [Micardis 80 Mg Tablet] 80 MG) PO SCH (10:00)
[2018-11-08] MEDS ORDERED: HYDROCHLOROTHIAZIDE 12.5 MG TABLET PO SCH (10:00)
[2018-11-08] MEDS ORDERED: CINNAMON BARK 500 MG PO SCH (10:00)
[2018-11-08] MEDS ORDERED: ENOXAPARIN SODIUM INJ 40 MG/0.4 ML DISP.SYRIN SUBCUT SCH (10:00)
[2018-11-08] MEDS ORDERED: LOSARTAN POTASSIUM 25 MG TABLET PO SCH (10:00)
[2018-11-08] MEDS ORDERED: (PENDING PHARMACY ID) (Telmisartan/Hydrochlorothiazid [Micardis Hct 40-12.5 Mg Tablet] 1 E PO SCH (10:00)
[2018-11-08] MEDS ORDERED: MULTIVITAMIN TABLET PO SCH (10:00)
[2018-11-08] MEDS ORDERED: TAMSULOSIN HCL 0.4 MG CAP.SR.24H PO SCH (10:00)
[2018-11-08] MEDS ORDERED: REGADENOSON INJ 0.4 MG/5 ML DISP.SYRIN IV ONE (10:51)
[2018-11-08] MEDS: FAMOTIDINE 20 MG TABLET PO SCH (11:08)
[2018-11-08] MEDS: FLUTICASONE NASAL SPRAY 50 MCG/SPRY 120 SPRAY/16 GM NASL SCH (11:09)
--- NOTE | 2018-11-08 13:27 | CONSULTATION REPORT E ---
Consultation Report NAME: JAE CHONG : 1945 AGE: 73Y DATE: 11/07/2018 436 A TO: ELENA PEREA M.D. FROM: ARELY RING M.D. Requesting Physician CHIEF COMPLAINT: Left-sided chest discomfort. PRESENTING ILLNESS: This 73-year-old very pleasant male patient with a known history of previous NC approximately 4 years ago (asymptomatic, old inferior) was having resting supine chest discomfort for the last 2 evenings. The discomfort is not described as a chest pain, but is a pressure, warm, burpy sensation, not related to stress and not associated with shortness of breath, swelling, nausea, and no radiation to the jaw or to the arms. 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 Two nights ago, he did try a sublingual nitroglycerin and this did not help. On the night prior to admission, he started having his discomfort approximately 4 a.m., managed to fall asleep within 15 minutes, waken up by the discomfort. He came to my office in the morning with this complaint and was sent over to the ER for workup of his chest pains. In the ER, a STAT EKG did not show any acute change from his last EKG. He was given a GI cocktail, and within 5-10 minutes, the discomfort went away. While at home, he had previously tried generic Nexium and this did not relieve his discomfort. He said until they stop giving him the brand name, Nexium, he was getting relief for his discomfort. It is to be noted that at his last NC he was totally asymptomatic. His coronary risk factors include hypertension, hypercholesterolemia. No diabetes, no recent smoking, and no family history of premature coronary artery disease. PAST MEDICAL HISTORY: Includes: 1. Hypertension. 2. Hypercholesterolemia. 3. Esophageal reflux. 4. Recent traumatic toe injury preventing him from being able to do a treadmill stress test. SURGICAL HISTORY: Includes: 1. Shoulder replacement. 2. Tonsillectomy. 3. Umbilical hernia repair. 4. Cervical fusion. SOCIAL HISTORY: The patient does not smoke or drink. ALLERGIES: NORVASC (ANAPHYLAXIS). CURRENT MEDICATIONS: Include: 1. Zocor 20 mg daily. 2. Hydrocodone/acetaminophen 1 tablet every 6 hours p.r.n. 3. Neurontin 1-2 capsules t.i.d. 4. Aspirin 81 mg daily. 5. Zyrtec 10 mg daily. 6. Micardis 80 mg daily. 7. Generic Nexium 40 mg daily. 8. Viagra p.r.n. 9. Terazosin 2 mg daily. 10. Proscar 5 mg daily. 11. Chlorthalidone 25 mg daily. 12. Atenolol 25 mg p.r.n. 13. Nitrostat cream 1/150 sublingual p.r.n. PHYSICAL EXAMINATION: GENERAL: Examination finds him to be in no distress. VITAL SIGNS: He is 69 inches and weight 217 pounds. Blood pressure was 129/68 and pulse rate was 85 BPM. HEENT: Normocephalic skull. Pupils equal and reactive to light and accommodation. Ears, nose, and throat normal. JVP not distended. HEART: PMI not palpable. S4 was present. Heart sounds were normal. No carotid or vertebral bruits. S4 was present. S1, S2 normal. A faint 2/6 systolic ejection murmur was heard. LUNGS: Good air entry. Normal breath sounds. No basilar crepitations. Rib cage examination showed no tenderness on palpation of the left precordium. ABDOMEN: No distention. No hepatosplenomegaly. No epigastric tenderness and normal bowel sounds. EXTREMITIES: No ankle edema, peripheral pulses were intact. NEUROLOGICAL: Entirely normal. In addition to the above dictated EKG findings, his chest x-ray was negative. There was a persistent elevation of the right diaphragm. The CBC showed hemoglobin of 15.2, white cell count 5.8, platelets 167,000, and normal. The BUN was 27 and creatinine was 1.24. The sodium was 141 and potassium was 4.1. The SGPT was normal at 36. The troponin I was less than 0.012 and normal. ASSESSMENT: 1. Left-sided chest pains. Description is atypical for angina, but patient's previous NC was also asymptomatic. There is a significant history of esophageal reflux and recently he has not been able to get his brand name Nexium, which seemed to work better for him than the generic Prilosec. Because of his previous history of NC and continuing coronary artery risk factors, it would be prudent to do a stress test on him before sending him out of the hospital. Therefore, an IV Lexiscan MPI has been ordered to be done in the a.m. Meanwhile, ludmilaight, he will have another STAT EKG p.r.n. for similar chest discomfort to make sure there are no acute ST changes. In the essence of acute EKG changes, therefore, the patient will be treated with viscous lidocaine. 2. Hypertension, under control. 3. Hypercholesterolemia. 4. Reflux esophagitis. 11/08/18 am. No CP overnight, to undergo iv Nilton MPI. This is done no CP , no EKG changes 11/08/18 PM . Stress test is abnormal, 2 reversible ischemis, one in apica inferiorwall, one inbasal septum. No fixed defects. Pt does have CAD, will opitmize med. Rx, start BB. No further CP, pt safe to go home. Discussed with Hospitalist. will follow in office next week. Pt to see PCM also for GERD for REYES Nexium, consider EGD, to R/o Brink's. DICTATING PHYSICIAN: ELENA PEREA M.D. [id number] PHY#: [id number] ID: [id number] JOB#: [id number] ACCT: [id number] cc:ELENA PEREA M.D. > MTDD
[2018-11-08 17:02] VITALS: BP 113/69
--- NOTE | 2018-11-08 17:59 | PDOC DISCHARGE SUMMARY ---
General - Admit/Disc Date/PCP Admission Date/Primary Care Provider: 11/07/18 14:19 JUANITA MICHELLE DO Discharge Date: 11/08/18 - Discharge Diagnosis (1) Chest pain Is this a current diagnosis for this admission?: Yes Summary: 11/07/2018-patient is going to be admitted to telemetry observation. Cardiology consult was requested. Serial cardiac enzymes with troponins and EKGs are req uested. Started on aspirin 325 mg p.o. daily, atorvastatin 40 mg p.o. nightly. Lipid panel is requested for tomorrow. Patient was scheduled for the stress test tomorrow. Initial troponin and EKGs are normal. I discussed the case with Dr. Brown who is her conductor/brakeman he is going to do the consult today. 11/08/2018 patient was admitted for chest pain atypical chest pain. Cardiology consult was done with Dr. Brown. EKGs troponins are negative. Stress test was negative. As per Dr. Brown's recommendation is going to go home on metoprolol 25 mg p.o. twice daily. Patient was advised to follow-up with Dr. Brown's office in 1 week time. Patient was also advised to follow-up with his PCP Dr. Michelle in 3-5 days. (2) Coronary artery disease Is this a current diagnosis for this admission?: Yes Summary: 11/07/2018-patient is given the history of heart attack 3 years ago. He denies any stent placements at the time. Never had any bypass surgery was done before. 11/08/2018-patient has history of coronary artery disease, no history of CABG or stent placement. He was admitted with chest pain stress test was negative. (3) HTN (hypertension) Is this a current diagnosis for this admission?: Yes Summary: 11/07/2018-patient is giving history of hypertension. Blood pressure today is 111/81. stable. Plan to resume his home medications. Patient is on tel misartan/hydrochlorothiazide 40/12.5 mg p.o. daily at home we are going to resume the medication here in the hospital. 11/08/2018-patient has history of hypertension blood pressure today 158/84. Pat ient is on telmisartan/hydrochlorothiazide 40/12.5 mg daily metoprolol 25 mg p.o. daily is added to his medications. Exercise weight loss, lifestyle modifications were discussed with the patient. She has verbalized his response. Patient was strongly advised to follow-up with Dr. Michelle in 3-5 days. (4) Obesity (BMI 30-39.9) Is this a current diagnosis for this admission?: Yes Summary: 11/08/2018-patient's BMI is more than 30. Diet exercise weight loss And medications were advised. A consult was done while he was in the hospital. (5) Hyperlipemia Is this a current diagnosis for this admission?: Yes Summary: 11/07/2018-patient is given the history of high cholesterols. He is not on any cholesterol medication at home. Started on atorvastatin 40 mg p.o. nightly. 11/08/2018 patient has history of hyperlipidemia. He was on simvastatin at home. Advised her to continue the medication. (6) GERD (gastroesophageal reflux disease) Is this a current diagnosis for this admission?: Yes Summary: 11/07/2018-patient is given the history of heartburn and history of gastric further reflux disease. He is on S omeprazole at home. We are going to put him on famotidine 20 mg p.o. twice a daily while he was in the hospital. 11/08/2018 patient has history of GERD, used to be on Nexium. Once medication was switched to generic his symptoms came back again. Once in a while he is paying the brand name Nexium in [facility]. I am going to give a prescription for Nexium 40 mg p.o. daily brand name for 1 month advised him to follow-up with Dr. Michelle for the refills. - Additional Information Resuscitation Status: Full Code Discharge Diet: Cardiac Discharge Activity: Activity As Tolerated Prescriptions: Esomeprazole Magnesium [Nexium] 40 mg PO DAILY #30 suspdr.pkt Metoprolol Tartrate [Lopressor 25 mg Tablet] 25 mg PO Q12 #60 tab Home Medications: Cetirizine HCl [Zyrtec] 10 mg PO QAM 11/07/18 Chlorthalidone [Hygroton 25 mg Tablet] 25 mg PO QAM 11/07/18 Finasteride [Proscar 5 mg Tablet] 5 mg PO QHS 11/07/18 Fluticasone Propionate [Flonase Nasal Wilmot 50 Mcg/Wilmot 16 gm] 2 sprays NASL QHS 11/07/18 Gabapentin [Neurontin 300 mg Capsule] 300 mg PO QHS 11/07/18 Nitroglycerin [Nitrostat 0.4 mg (1/150 Gr) Tabs 25/Bottle] 1 tab SL Q5MP PRN 11/07/18 Simvastatin [Zocor 20 mg Tablet] 20 mg PO QHS 11/07/18 Telmisartan [Micardis 80 mg Tablet] 80 mg PO DAILY 11/07/18 Terazosin HCl [Hytrin] 2 mg PO QHS 11/07/18 Aspirin [Aspirin 81 mg Chewable Tablet] 81 mg PO DAILY tab.chew 11/08/18 Cinnamon Bark [Cinnamon Bark 500 mg Capsule] 500 mg PO .DAILY 11/08/18 Esomeprazole Magnesium [Nexium] 40 mg PO DAILY #30 suspdr.pkt 11/08/18 Fluticasone Propionate [Flonase Nasal Wilmot 50 Mcg/Wilmot 16 gm] 1 spray NASL Q12 spray.pump 11/08/18 Losartan Potassium [Cozaar 25 mg Tablet] 25 mg PO DAILY tablet 11/08/18 Metoprolol Tartrate [Lopressor 25 mg Tablet] 25 mg PO Q12 #60 tab 11/08/18 Multivitamin [Tab-A-Magdaleno (Multiple Vitamin) Tablet] 1 tab PO DAILY tablet 11/08/18 Nitroglycerin [Nitrostat 0.4 mg (1/150 Gr) Tabs 25/Bottle] 1 tab SL ONCEP PRN bottle 11/08/18 Simvastatin [Zocor 10 mg Tablet] 20 mg PO QHS tablet 11/08/18 Tamsulosin HCl [Flomax 0.4 mg Cap.sr] 0.4 mg PO DAILY cap.sr.24h 11/08/18 History of Present Illness History of Present Illness: JAE CHONG is a 73 year old male with history of coronary artery disease status post ID 4 years ago, hypertension, hyperlipidemia, gastroparesis reflux disease came to the emergency room with complaints of on and off discomfort feeling over the chest middle of the chest rather each time lasting for couple of hours. He tried to take nitroglycerin at home did not ease of the pain. Pain is not associated with activity. No associated symptoms like nausea, vomiting, sweating, shortness of breath was reported by the patient. The workup done by the ER physician troponin was negative EKG with no acute changes medical consult was called for admission for possible stress test. Went to talk to the patient in the emergency room is comfortably in the bed alert and awake communicating well oriented. He is chest pain-free now. Patient actually went to see Dr. Brown is staff today with complaints of chest pain he was advised to come to the ER for further evaluation. Patient is also given the history and he was scheduled for outpatient stress test on November [address] Clark's office in the meantime he came to the emergency room with chest pains. Physical Exam Vital Signs: Temp Pulse Resp BP Pulse Ox 97.4 F 96 18 158/84 H 93 11/08/18 16:24 11/08/18 16:24 11/08/18 16:24 11/08/18 16:24 11/08/18 16:24 Intake & Output 11/07/18 11/08/18 11/09/18 06:59 06:59 06:59 Intake Total 445 Balance 445 Weight 98.5 kg General appearance: PRESENT: no acute distress Head exam: PRESENT: atraumatic Eye exam: PRESENT: PERRLA Mouth exam: PRESENT: moist, tongue midline Neck exam: ABSENT: carotid bruit, JVD, lymphadenopathy, thyromegaly Respiratory exam: PRESENT: clear to auscultation josé luis. ABSENT: rales, rhonchi, wheezes Cardiovascular exam: PRESENT: RRR. ABSENT: diastolic murmur, rubs, systolic murmur Vascular exam: PRESENT: normal capillary refill Extremities exam: PRESENT: full ROM. ABSENT: calf tenderness, clubbing, pedal edema Neurological exam: PRESENT: alert, awake, oriented to person, oriented to place, oriented to time, oriented to situation, CN II-XII grossly intact. ABSENT: motor sensory deficit Psychiatric exam: PRESENT: appropriate affect, normal mood. ABSENT: homicidal ideation, suicidal ideation Results Laboratory Results: 11/08/18 06:20 11/08/18 06:20 11/08/18 11/08/18 11/08/18 06:20 06:20 06:20 WBC 5.5 RBC 4.88 Hgb 14.3 Hct 42.8 MCV 88 MCH 29.4 MCHC 33.5 RDW 12.4 Plt Count 146 L Seg Neutrophils % 58.8 Lymphocytes % 21.0 Monocytes % 11.9 Eosinophils % 7.9 H Basophils % 0.4 Absolute Neutrophils 3.3 Absolute Lymphocytes 1.2 Absolute Monocytes 0.7 Absolute Eosinophils 0.4 Absolute Basophils 0.0 Sodium 138.0 Potassium 3.8 Chloride 102 Carbon Dioxide 31 H Anion Gap 5 BUN 25 H Creatinine 1.33 H Est GFR ( Amer) > 60 Est GFR (Non-Af Amer) 53 L Glucose 92 Calcium 9.1 Magnesium 1.9 Total Bilirubin 0.6 AST 22 ALT 44 Alkaline Phosphatase 70 Total Protein 6.0 L Albumin 3.7 Triglycerides 225 H Cholesterol 152.25 LDL Cholesterol Direct 64 VLDL Cholesterol 45.0 H HDL Cholesterol 39 L TSH 1.95 11/07/18 11/07/18 11/07/18 12:18 12:18 16:36 Creatine Kinase 49 L CK-MB (CK-2) 0.69 Troponin I < 0.012 < 0.012 NT-Pro-B Natriuret Pep 11/07/18 11/07/18 11/08/18 18:30 18:30 00:20 Creatine Kinase 44 L 44 L CK-MB (CK-2) 0.68 Troponin I < 0.012 NT-Pro-B Natriuret Pep 11/08/18 11/08/18 11/08/18 00:20 06:20 06:20 Creatine Kinase 42 L CK-MB (CK-2) 0.75 0.73 Troponin I < 0.012 < 0.012 NT-Pro-B Natriuret Pep 11/08/18 06:20 Creatine Kinase CK-MB (CK-2) Troponin I NT-Pro-B Natriuret Pep 39 Impressions: Chest X-Ray 11/07/18 12:07 IMPRESSION: NO ACUTE RADIOGRAPHIC FINDING IN THE CHEST. Qualifiers - * PATIENT BEING DISCHARGED WITH ANY OF THE FOLLOWING DIAGNOSIS: No VTE patient discharged on overlapping Therapy?: No
== END 2018-11-08 18:34 | disposition home or self-care (01) ==
LOC: ER 11:35 → EH 14:19 → 4S 20:39
PROVIDERS: ADMIT Internal Medicine; ATTEND Internal Medicine
DX: R07.89 Other chest pain (principal); I25.10 Atherosclerotic heart disease of native coronary artery without angina pectoris; I25.2 Old myocardial infarction; I10 Essential (primary) hypertension; E66.9 Obesity, unspecified; E78.5 Hyperlipidemia, unspecified; K21.9 Gastro-esophageal reflux disease without esophagitis; R06.02 Shortness of breath; S99.929S Unspecified injury of unspecified foot, sequela; X58.XXXS Exposure to other specified factors, sequela; I45.10 Unspecified right bundle-branch block; Z68.39 Body mass index [BMI] 39.0-39.9, adult; Z79.899 Other long term (current) drug therapy; Z87.891 Personal history of nicotine dependence
CPT/HCPCS: 93005; 99285; 36415 ×2; 82553 ×2; 82550 ×2; 83735; 84443; 85025 ×2; 80053 ×2; 84484 ×2; 80061; 83880; 93017; 71045; 78452; 93010; A9500; J2785; A9270 ×18; J3490 ×3; Q9969; G0378

== ENCOUNTER 2018-11-20 08:26 | Day surgery (SDC) | payer MEDICARE, OTHER ==
[~2018-11-20 08:26] MED LIST: DIPHENHYDRAMINE HCL 50 MG/ML VIAL ONE; EPINEPHRINE INJ 1 MG/10 ML DISP.SYRIN ONE; FENTANYL CITRATE INJ/PF 100 MCG/2 ML AMPUL ONE; FLUMAZENIL INJ 0.5 MG/5 ML VIAL ONE; GLUCAGON,HUMAN RECOMB 1 MG INJ ONE; NALOXONE HCL INJ/PF 0.4 MG/1 ML SDV ONE; ONDANSETRON HCL INJ/PF 4 MG/2 ML SDV ONE
[2018-11-20] MEDS: MIDAZOLAM 2 MG/2 ML INJ ONE ×2 (09:13→09:16)
--- NOTE | 2018-11-20 09:24 | Operative Report ---
Operative Report DATE OF SURGERY: 11/20/18 Operative Report: The risks benefits and alternatives of the procedure explained to the patient in detail and informed consent is obtained.A GIF Olympus video scope was inserted into the patient's mouth and hypopharynx, the esophagus is identified intubated and insufflated, the scope was then advanced through the esophagus stomach and duodenum, retroflexion maneuver is done, the esophagus stomach and first and second portions of the duodenum examined. PREOPERATIVE DIAGNOSIS: Gastroesophageal reflux disease POSTOPERATIVE DIAGNOSIS: Esophagitis versus Brink's status post biopsy. Gastritis status post biopsy rule out Helicobacter pylori OPERATION: EGD with biopsy SURGEON: JAYME KABA ANESTHESIA: Moderate Sedation - 3 mg of Versed, 50 mcg of fentanyl. Conscious sedation monitoring time 30 minutes. TISSUE REMOVED OR ALTERED: As noted above. COMPLICATIONS: None. ESTIMATED BLOOD LOSS: None. INTRAOPERATIVE FINDINGS: As noted above. PROCEDURE: Patient tolerated the procedure well. No immediate postprocedure complications are noted. Patient discharged in good condition. Discharge date 11/20/2018. Discharge diet: Regular. Discharge activity: Regular. 2-3-week follow-up to discuss findings. Patient is instructed to call the office or proceed to the emergency room should there be any further problems or questions. Wait on the pathology.
[2018-11-20 10:49] VITALS: BP 112/58
== END 2018-11-20 10:45 | disposition home or self-care (01) ==
LOC: END 08:26
PROVIDERS: ATTEND Internal Medicine Gastroenterology
DX: K29.50 Unspecified chronic gastritis without bleeding (principal); K21.0 Gastro-esophageal reflux disease with esophagitis; E78.2 Mixed hyperlipidemia; E66.9 Obesity, unspecified; I12.9 Hypertensive chronic kidney disease with stage 1 through stage 4 chronic kidney disease, or unspecified chronic kidney disease; N18.9 Chronic kidney disease, unspecified; G47.33 Obstructive sleep apnea (adult) (pediatric); M1A.09X0 Idiopathic chronic gout, multiple sites, without tophus (tophi); N40.1 Benign prostatic hyperplasia with lower urinary tract symptoms; Z68.32 Body mass index [BMI] 32.0-32.9, adult; Z79.899 Other long term (current) drug therapy; Z79.82 Long term (current) use of aspirin
CPT/HCPCS: 43239; 88342 ×2; 88305 ×2; J2250; J3010; J0171; J1200; J1610; J2310; J2405; J3490

== ENCOUNTER 2018-12-17 11:28 | Day surgery (SDC) | payer MEDICARE, OTHER ==
[2018-12-17] MEDS ORDERED: EPINEPHRINE INJ 1 MG/10 ML DISP.SYRIN ONE (11:44)
[2018-12-17] MEDS ORDERED: FLUMAZENIL INJ 0.5 MG/5 ML VIAL ONE (11:44)
[2018-12-17] MEDS ORDERED: FENTANYL CITRATE INJ/PF 100 MCG/2 ML AMPUL ONE (11:44)
[2018-12-17] MEDS ORDERED: DIPHENHYDRAMINE HCL 50 MG/ML VIAL ONE (11:44)
[2018-12-17] MEDS ORDERED: NALOXONE HCL INJ/PF 0.4 MG/1 ML SDV ONE (11:44)
[2018-12-17] MEDS ORDERED: GLUCAGON,HUMAN RECOMB 1 MG INJ ONE (11:44)
[2018-12-17] MEDS ORDERED: MIDAZOLAM 2 MG/2 ML INJ ONE (11:44)
[2018-12-17] MEDS ORDERED: ONDANSETRON HCL INJ/PF 4 MG/2 ML SDV ONE (11:44)
--- NOTE | 2018-12-17 12:18 | Operative Report ---
Operative Report DATE OF SURGERY: 12/17/18 Operative Report: The risks benefits and alternatives of the procedure explained to the patient in detail and informed consent is obtained.A GIF Olympus video scope was inserted into the patient's mouth and hypopharynx, the esophagus is identified intubated and insufflated, the scope was then advanced through the esophagus stomach and duodenum, retroflexion maneuver is done ,the esophagus stomach and first and second portions of the duodenum examined. PREOPERATIVE DIAGNOSIS: Brink's esophagus POSTOPERATIVE DIAGNOSIS: Brink's esophagus status post ablation OPERATION: EGD with radiofrequency ablation SURGEON: JAYME KABA ANESTHESIA: Moderate Sedation - 2 mg of Versed, 75 mcg of fentanyl. Conscious sedation monitoring time 30 minutes. TISSUE REMOVED OR ALTERED: As noted above. COMPLICATIONS: None. ESTIMATED BLOOD LOSS: None. INTRAOPERATIVE FINDINGS: As noted above. PROCEDURE: Patient tolerated the procedure well. No immediate postprocedure complications are noted. Patient discharged in good condition. Discharge date 12/17/2018. Discharge diet: Regular. Discharge activity: Regular. 2-3-week follow-up to discuss findings. Patient is instructed to call the office or proceed to the emergency room should there be any further problems or questions. Wait on the pathology.
[2018-12-17 13:00] VITALS: BP 115/73
== END 2018-12-17 13:05 | disposition home or self-care (01) ==
LOC: END 11:28
PROVIDERS: ATTEND Internal Medicine Gastroenterology
DX: K22.719 Barrett's esophagus with dysplasia, unspecified (principal); K21.9 Gastro-esophageal reflux disease without esophagitis; E78.2 Mixed hyperlipidemia; I12.9 Hypertensive chronic kidney disease with stage 1 through stage 4 chronic kidney disease, or unspecified chronic kidney disease; N18.9 Chronic kidney disease, unspecified; E66.9 Obesity, unspecified; Z68.32 Body mass index [BMI] 32.0-32.9, adult; G47.33 Obstructive sleep apnea (adult) (pediatric); N40.1 Benign prostatic hyperplasia with lower urinary tract symptoms; M1A.09X0 Idiopathic chronic gout, multiple sites, without tophus (tophi)
CPT/HCPCS: 43270; J2250; J3010; J0171; J1200; J1610; J2310; J2405; J3490

== ENCOUNTER → 2019-02-17 | Outpatient (CLI) | payer MEDICARE, OTHER ==
[2019-02-17 13:00] LABS: ALANINE AMINOTRANSFERASE 24 U/L (21-72); ALBUMIN 3.7 g/dL (3.5-5.0); ALKALINE PHOSPHATASE 68 U/L (38-126); ASPARTATE AMINO TRANSFERASE 21 U/L (17-59); BILIRUBIN,DIRECT 0.3 mg/dL (0.0-0.4); BILIRUBIN,TOTAL 0.6 mg/dL (0.2-1.3); CHOLESTEROL 144.08 mg/dL (0-200); TOTAL PROTEIN 6.4 g/dL (6.3-8.2); TRIGLYCERIDES 173 mg/dL (<150)
[2019-02-17 13:11] LABS: DIRECT LDL 61 mg/dL (<100)
[2019-02-17 13:14] LABS: VLDL CHOLESTEROL 34.6 mg/dL (10-31)
== END ==
LOC: LAB 12:10
PROVIDERS: ATTEND Internal Medicine Cardiovascular Disease
DX: R07.9 Chest pain, unspecified (principal); E78.00 Pure hypercholesterolemia, unspecified
CPT/HCPCS: 36415; 80061; 80076

== ENCOUNTER → 2019-04-14 | Outpatient (CLI) | payer MEDICARE, OTHER ==
[2019-04-14 16:52] LABS: APPEARANCE,URINE CLEAR; BILIRUBIN,URINE NEGATIVE (NEGATIVE); COLOR,URINE STRAW; GLUCOSE, URINE NEGATIVE (NEGATIVE); HEMATOCRIT 40.3 % (37.9-51.0); HEMOGLOBIN 13.6 g/dL (13.5-17.0); KETONES,URINE NEGATIVE (NEGATIVE); LEUKOCYTE ESTERASE,URINE NEGATIVE (NEGATIVE); MEAN CORPUSCULAR HGB CONC 33.9 g/dL (32.0-36.0); MEAN CORPUSCULAR VOLUME 89 fl (80-97); NITRITE,URINE NEGATIVE (NEGATIVE); PLATELET COUNT 159 10^3/uL (150-450); PROTEIN,URINE NEGATIVE (NEGATIVE); RED BLOOD COUNT 4.55 10^6/uL (4.35-5.55); RED CELL DISTRIBUTION WIDTH 12.2 % (11.5-14.0); URINE SPECIFIC GRAVITY 1.009; UROBILINOGEN,URINE NEGATIVE mg/dL (<2.0); WHITE BLOOD COUNT 5.9 10^3/uL (4.0-10.5)
[2019-04-14 17:03] LABS: ANION GAP 11 (5-19); BLOOD UREA NITROGEN 39 mg/dL (7-20); CALCIUM 8.8 mg/dL (8.4-10.2); CARBON DIOXIDE 25 mmol/L (22-30); CHLORIDE 102 mmol/L (98-107); GLUCOSE 107 mg/dL (75-110); POTASSIUM 4.1 mmol/L (3.6-5.0); SODIUM 137.6 mmol/L (137-145)
== END ==
LOC: OD 15:46
PROVIDERS: ATTEND Internal Medicine Nephrology
DX: I12.9 Hypertensive chronic kidney disease with stage 1 through stage 4 chronic kidney disease, or unspecified chronic kidney disease (principal); N18.2 Chronic kidney disease, stage 2 (mild); R80.9 Proteinuria, unspecified
CPT/HCPCS: 36415; 80048; 81001; 85027

== ENCOUNTER 2019-06-04 07:55 | Day surgery (SDC) | payer MEDICARE, OTHER ==
[2019-06-04] MEDS ORDERED: DIPHENHYDRAMINE HCL 50 MG/ML VIAL ONE (08:01)
[2019-06-04] MEDS ORDERED: ONDANSETRON HCL INJ/PF 4 MG/2 ML SDV ONE (08:01)
[2019-06-04] MEDS ORDERED: GLUCAGON,HUMAN RECOMB 1 MG INJ ONE (08:02)
[2019-06-04] MEDS ORDERED: MIDAZOLAM 2 MG/2 ML INJ ONE (08:02)
[2019-06-04] MEDS ORDERED: EPINEPHRINE INJ 1 MG/10 ML DISP.SYRIN ONE (08:02)
[2019-06-04] MEDS ORDERED: FENTANYL CITRATE INJ/PF 100 MCG/2 ML AMPUL ONE (08:02)
[2019-06-04] MEDS ORDERED: NALOXONE HCL INJ/PF 0.4 MG/1 ML SDV ONE (08:02)
[2019-06-04] MEDS ORDERED: FLUMAZENIL INJ 0.5 MG/5 ML VIAL ONE (08:02)
[2019-06-04] MEDS ORDERED: FENTANYL CITRATE INJ/PF 50 MCG/1 ML 50 ML SDV IV ONE ×2 (08:36→08:39)
[2019-06-04] MEDS ORDERED: MIDAZOLAM 2 MG/2 ML INJ IV ONE (08:36)
--- NOTE | 2019-06-04 09:06 | Operative Report ---
Operative Report DATE OF SURGERY: 06/04/19 PREOPERATIVE DIAGNOSIS: Epigastric pain rule out peptic ulcer disease POSTOPERATIVE DIAGNOSIS: Fundic gland polyps. Gastritis status post biopsy. 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 Brink's seems to have resolved OPERATION: EGD with ablation of AVM. EGD with biopsy SURGEON: JAYME KABA ANESTHESIA: Moderate Sedation - 3 mg of Versed, 25 mcg of fentanyl. Conscious sedation monitoring time 30 minutes. TISSUE REMOVED OR ALTERED: As noted above. COMPLICATIONS: None. ESTIMATED BLOOD LOSS: None. INTRAOPERATIVE FINDINGS: As noted above. PROCEDURE: The risks benefits and alternatives of the procedure explained to the patient in detail and informed consent is obtained.A GIF Olympus video scope was inserted into the patient's mouth and hypopharynx ,the esophagus is identified intubated and insufflated, the scope was then advanced through the esophagus stomach and duodenum, retroflexion maneuver is done, the esophagus stomach and first and second portions of the duodenum examined. Patient tolerated the procedure well. No immediate postprocedure complications are noted. Patient is discharged in good condition. Discharge date 06/04/2019. Discharge diet: Regular. Discharge activity: Regular. 2 to 3-week follow-up to discuss findings. Patient is instructed to call the office or proceed to the emergency room should there be any further problems or questions. Wait on the pathology.
[2019-06-04 09:43] VITALS: BP 112/58
--- NOTE | 2019-06-04 17:38 | EKG REPORT ---
SEVERITY:- ABNORMAL ECG - SINUS RHYTHM RIGHT BUNDLE BRANCH BLOCK : Confirmed by: Gail Wilcox MD 04-Jun-2019 17:37:32
== END 2019-06-04 10:05 | disposition home or self-care (01) ==
LOC: END 07:55
PROVIDERS: ATTEND Internal Medicine Gastroenterology
DX: K29.50 Unspecified chronic gastritis without bleeding (principal); K31.7 Polyp of stomach and duodenum; K31.819 Angiodysplasia of stomach and duodenum without bleeding; K21.9 Gastro-esophageal reflux disease without esophagitis; I12.9 Hypertensive chronic kidney disease with stage 1 through stage 4 chronic kidney disease, or unspecified chronic kidney disease; N18.9 Chronic kidney disease, unspecified; E66.01 Morbid (severe) obesity due to excess calories; Z68.32 Body mass index [BMI] 32.0-32.9, adult; G47.33 Obstructive sleep apnea (adult) (pediatric); M1A.09X0 Idiopathic chronic gout, multiple sites, without tophus (tophi); N40.1 Benign prostatic hyperplasia with lower urinary tract symptoms; Z79.82 Long term (current) use of aspirin; Z79.899 Other long term (current) drug therapy; E78.2 Mixed hyperlipidemia
CPT/HCPCS: 43239; 43255; 88305 ×2; 93005; 93010; J2250; J3010 ×2; J0171; J1200; J1610; J2310; J2405; J3490

== ENCOUNTER → 2019-12-03 | Outpatient (CLI) | payer MEDICARE, OTHER ==
[2019-12-03 16:19] LABS: APPEARANCE,URINE CLEAR; BILIRUBIN,URINE NEGATIVE (NEGATIVE); COLOR,URINE YELLOW; GLUCOSE, URINE NEGATIVE (NEGATIVE); KETONES,URINE NEGATIVE (NEGATIVE); LEUKOCYTE ESTERASE,URINE NEGATIVE (NEGATIVE); NITRITE,URINE NEGATIVE (NEGATIVE); PROTEIN,URINE NEGATIVE (NEGATIVE); URINE SPECIFIC GRAVITY 1.012; UROBILINOGEN,URINE NEGATIVE mg/dL (<2.0)
[2019-12-03 16:21] LABS: HEMATOCRIT 41.9 % (37.9-51.0); HEMOGLOBIN 14.4 g/dL (13.5-17.0); MEAN CORPUSCULAR HEMOGLOBIN 30.1 pg (27.0-33.4); MEAN CORPUSCULAR HGB CONC 34.4 g/dL (32.0-36.0); MEAN CORPUSCULAR VOLUME 88 fl (80-97); PLATELET COUNT 153 10^3/uL (150-450); RED BLOOD COUNT 4.78 10^6/uL (4.35-5.55); RED CELL DISTRIBUTION WIDTH 12.6 % (11.5-14.0); WHITE BLOOD COUNT 5.3 10^3/uL (4.0-10.5)
[2019-12-03 16:40] LABS: ALBUMIN 3.9 g/dL (3.5-5.0); ANION GAP 11 (5-19); BLOOD UREA NITROGEN 30 mg/dL (7-20); CALCIUM 9.4 mg/dL (8.4-10.2); CARBON DIOXIDE 26 mmol/L (22-30); CHLORIDE 101 mmol/L (98-107); GLUCOSE 99 mg/dL (75-110); PHOSPHORUS 4.1 mg/dL (2.5-4.5); POTASSIUM 4.1 mmol/L (3.6-5.0)
== END ==
LOC: OD 15:30
PROVIDERS: ATTEND Internal Medicine Nephrology
DX: N18.2 Chronic kidney disease, stage 2 (mild) (principal); I12.9 Hypertensive chronic kidney disease with stage 1 through stage 4 chronic kidney disease, or unspecified chronic kidney disease; R80.9 Proteinuria, unspecified
CPT/HCPCS: 36415; 80069; 81001; 85027

== ENCOUNTER → 2020-06-10 | Outpatient (CLI) | payer MEDICARE, OTHER | LOC: OD 14:43 | PROVIDERS: ATTEND Physician Assistant | DX: I48.0 Paroxysmal atrial fibrillation (principal) | CPT/HCPCS: 36415; 83735 ==

== ENCOUNTER 2020-08-12 11:54 | Day surgery (SDC) | payer MEDICARE, OTHER ==
[~2020-08-12 11:54] MED LIST changes: -DIPHENHYDRAMINE HCL 50 MG/ML VIAL ONE; -EPINEPHRINE INJ 1 MG/10 ML DISP.SYRIN ONE; -FENTANYL CITRATE INJ/PF 100 MCG/2 ML AMPUL ONE; -FLUMAZENIL INJ 0.5 MG/5 ML VIAL ONE; -GLUCAGON,HUMAN RECOMB 1 MG INJ ONE; -NALOXONE HCL INJ/PF 0.4 MG/1 ML SDV ONE; -ONDANSETRON HCL INJ/PF 4 MG/2 ML SDV ONE; +PROPOFOL INJ 200 MG/20 ML VIAL IV ONE
[2020-08-12] MEDS ORDERED: PROPOFOL INJ 200 MG/20 ML VIAL IV ONE (13:31)
--- NOTE | 2020-08-12 14:03 | Operative Report ---
Operative Report DATE OF SURGERY: 08/12/20 Operative Report: The risk, benefits and alternatives of the procedure including the risks of bleeding, perforation requiring surgery have been explained to the patient in detail and informed consent has been obtained. Patient is placed in left, lateral decubital position. Timeout was called. Propofol medication is administered. Rectal exam is performed did not reveal any masses, tears or fissures. An Olympus videoscope was introduced into the patient's rectum and subsequently advanced all the way to the cecum. Cecum was identified by the usual anatomical landmarks of the ileocecal valve as well as the appendiceal office. Photodocumentation is obtained. Scope was then sequentially pulled back via the various segments of the colon including the ascending colon, hepatic flexure, transverse colon, splenic flexure, descending colon finding to the rectosigmoid portions of the colon. Retroflexion maneuver is performed. PREOPERATIVE DIAGNOSIS: Encounter for colorectal cancer screening. Change in bowel habits POSTOPERATIVE DIAGNOSIS: Diverticulosis. Descending colon polyp status post snare polypectomy with retrieval. Internal hemorrhoids OPERATION: Colonoscopy with snare polypectomy SURGEON: JAYME KABA ANESTHESIA: LMAC TISSUE REMOVED OR ALTERED: As noted above. COMPLICATIONS: None. ESTIMATED BLOOD LOSS: None. INTRAOPERATIVE FINDINGS: As noted above. PROCEDURE: Patient tolerated the procedure well. No immediate postprocedure complications are noted. Patient is discharged in good condition. Discharge date 08/12/2020. Discharge diet: Regular. Discharge activity: Regular. 2 to 3-week follow-up to discuss findings. Patient is instructed to call the office or proceed to the emergency room should there be any further problems or questions. Wait on the pathology. 3 to 5-year surveillance colonoscopy.
[2020-08-12 14:20] VITALS: BP 121/68
== END 2020-08-12 14:23 | disposition home or self-care (01) ==
LOC: END 11:54
PROVIDERS: ATTEND Internal Medicine Gastroenterology
DX: D12.5 Benign neoplasm of sigmoid colon (principal); K57.90 Diverticulosis of intestine, part unspecified, without perforation or abscess without bleeding; K52.9 Noninfective gastroenteritis and colitis, unspecified; K64.8 Other hemorrhoids; I12.9 Hypertensive chronic kidney disease with stage 1 through stage 4 chronic kidney disease, or unspecified chronic kidney disease; N18.9 Chronic kidney disease, unspecified; E78.2 Mixed hyperlipidemia; K21.9 Gastro-esophageal reflux disease without esophagitis; E66.9 Obesity, unspecified; Z68.32 Body mass index [BMI] 32.0-32.9, adult; G47.33 Obstructive sleep apnea (adult) (pediatric); N40.1 Benign prostatic hyperplasia with lower urinary tract symptoms; M10.09 Idiopathic gout, multiple sites; I25.2 Old myocardial infarction; Z79.82 Long term (current) use of aspirin; Z79.899 Other long term (current) drug therapy; Z87.891 Personal history of nicotine dependence
CPT/HCPCS: 45385; 88305 ×2; 00811; J2704; 45380; 811

== ENCOUNTER → 2020-10-13 | Outpatient (CLI) | payer MEDICARE, OTHER ==
[2020-10-13 14:05] LABS: ALBUMIN 3.8 g/dL (3.5-5.0); ALKALINE PHOSPHATASE 104 U/L (38-126); ANION GAP 8 (5-19); ASPARTATE AMINO TRANSFERASE 34 U/L (17-59); BILIRUBIN,DIRECT 0.2 mg/dL (0.0-0.4); BILIRUBIN,TOTAL 0.8 mg/dL (0.2-1.3); BLOOD UREA NITROGEN 26 mg/dL (7-20); CALCIUM 9.2 mg/dL (8.4-10.2); CARBON DIOXIDE 28 mmol/L (22-30); CHLORIDE 104 mmol/L (98-107); CHOLESTEROL 156.75 mg/dL (0-200); GLUCOSE 103 mg/dL (75-110); POTASSIUM 3.8 mmol/L (3.6-5.0); TOTAL PROTEIN 6.5 g/dL (6.3-8.2); TRIGLYCERIDES 142 mg/dL (<150)
[2020-10-13 14:17] LABS: DIRECT LDL 68 mg/dL (<100)
== END ==
LOC: OD 12:26
PROVIDERS: ATTEND Physician Assistant
DX: E78.00 Pure hypercholesterolemia, unspecified (principal); Z79.899 Other long term (current) drug therapy
CPT/HCPCS: 36415; 80048; 80061; 80076